=== PATIENT | male | born 1960 | race Caucasian/White ===

== ENCOUNTER 2023-05-16 09:39 | Outpatient (AMB) | payer BC, SELFPAY ==
--- NOTE | 2023-05-16 10:07 | A.OFFVIS_ITS ---
Intake Intake Visit Reasons: BPH N40.1 Intake Note: New Patient presents today to establish treatment for BPH Meds- Tamsulosin (PCP) Allergies to Antibiotic- No Known Allergies Blood Thinner- None Post Void Residual: 73ml [place] Guide Required: No Accompanied by: Self / Same As Patient Allergies No Known Allergies Allergy (Verified 05/16/23 10:56) Medication List - Last Reconciled 05/16/23 by ERNIE Valdez- amlodipine 5 mg PO DAILY atorvastatin 10 mg PO DAILY bimatoprost 0.03% drps ophthalmic (eye) dorzolamide-timolol 22.3-6.8 mg/mL 1 drp ophthalmic (eye) BID hydrochlorothiazide 12.5 mg PO DAILY lisinopril 40 mg PO DAILY terazosin 5 mg PO BEDTIME 30 days HPI HPI Comments History of Present Illness Details Sohail is a pleasant 62-year-old male patient of Dr. Moe. He has a past medical history of hypertension, hyperlipidemia, glaucoma, and BPH. He presents to the office today as a new patient for urinary hesitancy. In discussion with the patient today he reports noting urinary symptoms have been present for quite some time and has been on Flomax 0.4 and 0.8 mg without improvement. He brings with him last previous renal ultrasounds. Retroperitoneal ultrasound 06/12 right renal cysts are identified with the largest measuring 1.8 cm. 0.6 cm nonobstructing right renal calculus. Left kidney with no calculi or hydronephrosis. The bladder is unremarkable. Pre void bladder volume is approximately 515 mL. Postvoid bladder volume is approximately 185 mL. Discussed incomplete bladder emptying. When asked he reports his main concern is urinary hesitancy. He reports feeling urinary hesitancy is worse during the evening. He otherwise denies urinary urgency, urinary frequency, incontinence, nocturia, hematuria, dysuria, foul smelling urine, changes to urinary stream, flank pain, fever, and or chills. In office urinalysis results reviewed with the patient today. PVR 73ml's. [facility] Medical History Congenital blocked tear duct Hypertension Hyperlipidemia Glaucoma BPH (benign prostatic hyperplasia) Surgical History History of hernia repair Review of Systems Const Reports no additional complaints Eyes Reports as per HPI ENT Reports no additional complaints Card Reports as per HPI Resp Reports no additional complaints GI Reports no additional complaints Reports as per HPI Musc Reports no additional complaints Neuro Reports no additional complaints Psych Reports no additional complaints Endo Reports no additional complaints Giancarlo/Lymph Reports no additional complaints Aller/Immun Reports no additional complaints Physical Exam Const General: cooperative, healthy appearing, comfortable, no acute distress, well developed, alert and awake Orientation/consciousness: patient oriented x3 Limitations: no limitations HEENT Head: Yes normal to inspection, Yes normocephalic and Yes atraumatic Ears: hearing grossly normal bilaterally Eyes General: appearance normal, both eyes and all related structures Neck Neck: Yes normal visual inspection and Yes trachea midline Chest Chest palpation & inspection: normal inspection of the chest Resp Effort & Inspection: normal respiratory effort and able to speak in complete sentences Cardio Rate: regular rate GI Inspection: Yes normal to inspection General: Yes no CVA tenderness Back/Spine/Pelvis Back: no CVA tenderness Skin General skin exam: no rashes or lesions noted Neuro General: patient oriented x3 Extrem General: Yes normal to inspection Psych Appearance: grossly normal and well kempt Mental Status: mental status grossly normal Speech and movement: Normal speech and movement present and Clear speech present Affect: normal affect Attitude: cooperative Thought process: Normal thought process present Thought content: Normal thought content present Insight: Fair insight present (Psych) Judgement: Fair judgement present (Psych) Office Procedures Post Void Residual Post Residual Void Post Void Residual (PVR): [id number] Void Residual by ultrasound Results AMB Urinalysis, Automated UA Leukoctes 0 Gerry/uL Last Edit by Mikaela Cantor CMA on 05/16/23 10 :20 UA Nitrite Negative Last Edit by Mikaela Cantor CMA on 05/16/23 10: 20 UA Urobilinogen 0.2 mg/dL Last Edit by Mikaela Cantor CMA on 4 10:20 UA Protein 0 mg/dL Last Edit by [facility] on 05/16/23 10:20 UA pH 6.0 Last Edit by [facility], [facility] on 05/16/23 10:20 UA Blood 0 Lester/uL Last Edit by [facility], [facility] on 05/16/23 10:20 UA Specific [place] 1.010 Last Edit by [facility], [facility] on 10:20 UA Ketone Negative Last Edit by [facility], [facility] on 05/16/23 10:2 0 UA Bilirubin 0 mg/dL Last Edit by [facility], [facility] on 05/16/23 10: 20 UA Glucose 0 mg/dL Last Edit by [facility], [facility] on 05/16/23 10:20 Results Reviewed Results Reviewed: Laboratory Last Values Urine pH (Auto) 6.0 05/16/23 10:19 Specific [place] (Auto) 1.010 05/16/23 10:19 Urine Protein (Auto) 0 mg/dL 05/16/23 10:19 Glucose (UA)(Auto) 0 mg/dL 05/16/23 10:19 Urine Ketones (Auto) Negative 05/16/23 10:19 Urine Blood (Auto) 0 Lester/uL 05/16/23 10:19 Urine Nitrite (Auto) Negative 05/16/23 10:19 Urine Bilirubin (Auto) 0 mg/dL 05/16/23 10:19 Urine Urobilinogen (Auto) 0.2 mg/dL 05/16/23 10:19 Leukocyte Esterase (Auto) 0 Gerry/uL 05/16/23 10:19 Assessment & Plan Assessment & Plan (1) BPH (benign prostatic hyperplasia): Code(s): N40.0 - Benign prostatic hyperplasia without lower urinary tract symptoms (2) Urinary hesitancy due to benign prostatic hyperplasia: Code(s): N40.1 - Benign prostatic hyperplasia with lower urinary tract symptoms; R39.11 - Hesitancy of micturition (3) Incomplete bladder emptying: Code(s): R33.9 - Retention of urine, unspecified (4) Renal cyst: Code(s): N28.1 - Cyst of kidney, acquired (5) Renal calculus, right: Code(s): N20.0 - Calculus of kidney Plan In office urinalysis results reviewed with the patient today. PVR 73 mL. Will obtain retroperitoneal ultrasound for further assessment evaluation. Will obtain PSA for further assessment evaluation. Stop Flomax. Start terazosin 5 mg as discussed and prescribed. Discussed at length potential causes for urinary hesitancy. Discussed attempting to sit when voiding to relax pelvis. Discussed, educated, and stressed the importance of drinking plenty of water d aily. Discussed adding 1 oz of lemon juice to water daily. Discussed possible near future in office cystoscopy and or urodynamics for further assessment evaluation. Follow-up in 1-3 months with imaging and lab to be completed prior; or sooner with any issues, concerns, and or questions. Orders: Orders US retroperitoneal comp Today N40.1 - Benign prostatic hyperplasia with lower urinary tract symptoms, R39.11 - Hesitancy of micturition AMB Urinalysis Automated Today R33.9 - Retention of urine, unspecified AMB Post Void Residual by ultrasound Today R33.9 - Retention of urine, unspecified Prostate Specific Antigen Today N40.0 - Benign prostatic hyperplasia without lower urinary tract symptoms Medications: New terazosin 5 mg PO BEDTIME 30 days 30 caps 2RF N40.1 - Benign prostatic hyperplasia with lower urinary tract symptoms, R35.0 - Frequency of micturition Patient Instructions: The patient had an opportunity to ask questions regarding the treatment plan. All questions were answered. Physical exam, labs, and imaging were discussed and reviewed in detail. As well as risks, benefits, and discussion of treatment choices. No major barriers to understanding were identified. The patient expressed understanding and agreement with the above treatment plan. The patient was made aware they should contact our office by phone for worsening of their current condition, the appearance of new symptoms, or with any questions or concerns. Compliance is encouraged with any medications and follow up testing that is ordered. It is a privilege to be allowed the opportunity to participate in? your urological care.? Again, if you have any questions or concerns If you have any questions or concerns please do not hesitate to contact me. The office is [phone]. This note is constructed using voice recognition software. While every effort has been made to ensure accuracy profiling machine operator errors may have been included. Yours sincerely, ROSAMARIA Valdez Coding Level of Care Code New Pt Level 4 (92115) Diagnoses BPH (benign prostatic hyperplasia) N40.0 Urinary hesitancy due to benign prostatic hyperplasia N40.1; R39.11 Incomplete bladder emptying R33.9 Renal cyst N28.1 Renal calculus, right N20.0 CPT Codes Post Residual Void - PVR CPT Code: 86813-[id number] Void Residual by ultrasound ([id number])
== END 2023-05-16 10:43 | disposition home or self-care (01) ==
PROVIDERS: PCP Internal Medicine; Visit Provider Nurse Practitioner Family
DX: N40.0 Benign prostatic hyperplasia without lower urinary tract symptoms (principal); N40.1 Benign prostatic hyperplasia with lower urinary tract symptoms; R39.11 Hesitancy of micturition; R33.9 Retention of urine, unspecified; N28.1 Cyst of kidney, acquired; N20.0 Calculus of kidney
CPT/HCPCS: 99204

== ENCOUNTER → 2023-05-16 09:39 | Outpatient (BNVA) | payer BC, SELFPAY | PROVIDERS: PCP Internal Medicine; Visit Provider Nurse Practitioner Family | DX: N40.1 Benign prostatic hyperplasia with lower urinary tract symptoms (principal); R39.11 Hesitancy of micturition; R33.8 Other retention of urine; N28.1 Cyst of kidney, acquired; N20.0 Calculus of kidney | CPT/HCPCS: 51798; 81003 ==

== ENCOUNTER 2023-07-20 07:30 | Outpatient (REF) | payer BC, SELFPAY ==
[2023-07-20 12:28] LABS: Prostate Specific Antigen 1.55 ng/mL (<0.05-4.0)
== END 2023-07-20 07:31 | disposition home or self-care (01) ==
LOC: HO.WFDLDS 07:30
PROVIDERS: Visit Provider Nurse Practitioner Family
DX: N40.0 Benign prostatic hyperplasia without lower urinary tract symptoms (principal); Z12.5 Encounter for screening for malignant neoplasm of prostate
CPT/HCPCS: 36415; 84153